=== PATIENT | female | born 1965 | race Caucasian/White ===

== ENCOUNTER → 2022-05-02 | Outpatient (CLI) | payer SELFPAY ==
--- NOTE | 2022-05-02 14:21 | CT_ITS ---
STUDY: CT FACIAL BONES WITHOUT CONTRAST REASON FOR EXAM: Female, 56 years old. CHRONIC SINUITIS RADIATION DOSAGE (If Supplied By Facility): CTDIvol = ( ) mGy, DLP = ( ) mGycm TECHNIQUE: The patient was scanned in a multi detector CT scanner. Sagittal and coronal images were reconstructed. Individualized dose optimization techniques were used for this CT. COMPARISON: None. FINDINGS: Normal soft tissue structures. Normal orbital nieves and orbital contents. Normal nasal bones and anterior nasal spine. Normal facial bones. There is no demonstrated fracture. Chronic pansinusitis with erosion or resection of the medial wall the maxillary sinuses and the middle turbinates and obstruction of the nasal cavity.. CT/Sinus/Facial Bone IMPRESSION: Normal unenhanced CT of the facial bones. Chronic pansinusitis with obstruction of the nasal cavity. Electronically Signed: Joe Sanon MD at 17:05 EDT ,
== END | disposition home or self-care (01) ==
PROVIDERS: PCP Nurse Practitioner Family; Referring Provider Otolaryngology; Visit Provider Otolaryngology
DX: J32.4 Chronic pansinusitis (principal)
CPT/HCPCS: 70486

== ENCOUNTER 2022-06-30 10:52 | Day surgery (SDC) | payer SELFPAY, OTHER ==
--- NOTE | 2022-06-26 11:07 | EKG12_ITS ---
Test Reason : PREOP Blood Pressure : / mmHG Vent. Rate : 080 BPM Atrial Rate : 080 BPM P-R Int : 146 ms QRS Dur : 080 ms QT Int : 358 ms P-R-T Axes : 058 002 030 degrees QTc Int : 412 ms Normal sinus rhythm Normal ECG Confirmed by DOTTIE LEBLANC, NILS ([id number]), avid editor CYNTHIA BYRD ([id number]) on 06/27/2022 10:36:54 AM Referred By: Gregory Rondon Confirmed By:INOCENCIA SINCLAIR MD
[2022-06-26 13:40] LABS: Thyroid Stim Hormone (TSH) 1.28 uIU/mL (0.358-3.74)
[2022-06-30] VITALS (13 sets, daily range): BP systolic 124–168; BP diastolic 67–93; PULSE 61–96; RESP 16–18; TEMP 36.5–36.8; O2SAT 90–99; BMI 29.5
[2022-06-30] MEDS: Lactated Ringers 1,000 ML 15 ML IV ×2 (11:42→15:40)
[2022-06-30] MEDS: Oxymetazoline 0.05% 1 SPRAY SPRAY.BTL NASAL (11:42)
[2022-06-30] MEDS: Oxymetazoline 0.05% 1 SPRAY SPRAY.BTL 15 SPRAY (12:09)
--- NOTE | 2022-06-30 12:37 | PCM.DC.SUM ---
Providers Primary Care Physician: Joe Haider, DOT-C Reason For Visit: ENDOSCOPIC INTRANASAL ETHMOID, MAX, ANTROS Medications at Discharge Home Medications Colon [place]es 2 tab PO/SL TID 06/24/22 L-Theanine 1 cap PO/SL DAILY 06/24/22 Thyroid Complete 2 tab PO/SL DAILY 06/24/22 Yeast Desent 2 tab PO/SL DAILY 06/24/22 cholecalciferol (vitamin D3) 125 mcg (5,000 unit) tablet (Vitamin D3) 125 mcg PO DAILY 06/24/22 elderberry fruit 200 mg capsule 1,150 mg PO DAILY 06/24/22 fish, borage, flaxseed oils-omega 3,6,9 comb no.1 1,200 mg capsule ([place] 3-6-9) 2 cap PO DAILY 06/24/22 ranitidine HCl 75 mg tablet 75 mg PO DAILY 06/24/22 Weight / BMI Weight Weight: 78 kg Body Mass Index (BMI) 29.5 D/C Instructions Discharge Diet: No restrictions Discharge Activity: Return to Normal Activity Additional Activity Instructions: Start irrigation 4x/day on 07/01/22 Start the antibiotic tonight Please Follow Up With: Gregory Rondon MD When: next week Meaningful Use Info Meaningful Use Diagnoses (Choose all that apply): None applicable Discharge Plan Admission Attending Provider: Gregory Rondon Primary Care Provider: Joe Haider NP Consulting Providers: Deshaun Rand Discharge Orders/Prescriptions Prescriptions: No Action Elderberry 200 mg Capsule 1,150 mg PO DAILY cholecalciferol (vitamin D3) [Vitamin D3] 125 mcg (5,000 unit) Tablet 125 mcg PO DAILY [place] 3-6-9 1,200 mg Capsule 2 cap PO DAILY Colon Ames 2 tab PO/SL TID Thyroid Complete 2 tab PO/SL DAILY Yeast Desent 2 tab PO/SL DAILY L-Theanine 1 cap PO/SL DAILY ranitidine HCl [Zantac 75] 75 mg Tablet 75 mg PO DAILY Referrals / Follow Up: Joe Haider NP, PET ADOPTION COUNSELOR-C [Primary Care Provider] - Disposition Disposition (needs filled in before D/C Order can be placed): Home, Self Care
[2022-06-30] MEDS: Lidocaine 2% /Epi 1:100 (20ml) 20 ML VIAL (12:47)
--- NOTE | 2022-06-30 13:05 | NASAL_PTH ---
PATIENT: NELSY LONGO LOC: [facility] [place] U#:[id number] AGE/SX: 56/F ROOM: RE06/30/[address]: Dr. Gregory Rondon MD : 1965 BED: DIS: 06/30/2022 SPEC #: [id number] RECD: 06/30/22 14:17 STATUS: MARGOT REElida #: [id number] BRYATN: 06/30/22 13:[address]: Gregory Rondon DEPT: SURGICAL PATHOLOGY RECD BY: Sophia Llamas ENTERED: 07/01/22 09:28 SP TYPE: NASAL SPEC OTHR DR: MD Joe Gorman, [employer] OPERATOR-C Tissues: A - Ethmoid sinus, NOS B - Ethmoid sinus, NOS Procedures: Surgery Specimen Level IV HEADER OPERATION: Endoscopic intranasal ethmoid, max, antros, tissue removal PRE-OP DIAGNOSIS: Nasal cavity polyp, chronic sinusitis, nasal congestion, pansinusitis TISSUE SUBMITTED: A ? Right sinus contents, B ? Left sinus contents MICROSCOPIC DIAGNOSIS A. Right sinus contents: Fragments of respiratory mucosa with chronic inflammation. B. Left sinus contents: Fragments of respiratory mucosa with chronic inflammation and bone. NILA:crow 07/02/2022 MICROSCOPIC DESCRIPTION Slides are reviewed. GROSS DESCRIPTION A - Received in fixative is one container labeled with the patient's name and designated right sinus contents. The specimen consists of multiple fragments of thompson hemorrhagic soft tissue that in aggregate measure 7.5 x 3 x 0.3 cm. The specimen is totally submitted in three cassettes. B - Received in fixative is one container labeled with the patient's name and designated left sinus contents. The specimen consists of multiple fragments of frothy, hemorrhagic, thompson-pink soft tissue that in aggregate measure 4 x 4 x 1 cm. Inventory Planner tissue is submitted in three cassettes. / NILA:crow 07/01/2022 TC:3 CPT: 90686 x2
--- NOTE | 2022-06-30 13:36 | OP.PCM_ITS ---
Report of Operation Pre-Operative Diagnosis: chronic sinusitis nasal polyps Post-Operative Diagnosis: same Surgery/Procedure Performed:: Bilateral total ethmoidectomy bilateral maxillary antrostomy use of navigation Surgeon: Gregory Rondon Type of Anesthesia: General Anesthesiologist: Ashkan Sullivan Estimated Blood Loss (mL): minimal Description of Procedure: The patient was taken to the operating room on 06/30/2022. The patient was placed in the supine position on the operating table. The patient was given sufficient general endotracheal anesthesia. The head of bed was elevated 30 degrees. The navigation system was placed and verified per protocol and found to be accurate. 0 and 30 degrees rigid nasal endoscopes were used throughout the entire case. The middle turbinate uncinate process and polyps were injected with 2% lidocaine with epinephrine bilaterally. The right middle turbinate was medialized with a [place] elevator. Polyp was removed from the middle meatus using a sinus shaver. The maxillary antrostomy was recreated by removing polyp from the antrum. Tissue was removed from the maxillary sinus using a microdebrider with a 30 degree rigid nasal endoscope for visualization. Anterior and posterior ethmoidectomy were then carried out using curette, sinus shaver and 45 degree Bl[place]ley Marlin forceps. Ethmoid cells were verified for relation to the skull base and orbit prior to being entered with the navigation system. I then placed Afrin pledgets into the sinonasal cavity. Next attention was turned to the left side. The middle turbinate was medialized with a [place] elevator. A large polyp was removed from the middle meatus using a sinus shaver. In doing so, the maxillary antrostomy was created. Tissue/polyp was removed from the maxillary sinus using with a 30 degree rigid nasal endoscope for visualization. Anterior posterior ethmoidectomy were then carried out using a sinus shaver curette and Blakesley Marlin forceps. Ethmoid cells were verified for relation to the skull base and orbit prior to being entered with the navigation system. Hemostasis was then achieved using Afrin pledgets and suction cautery. The pledgets were then removed bilaterally and Radha powder was applied bilaterally for absolute hemostasis. The procedure was then terminated. The patient was then awoken and brought to the recovery room in stable condition blood loss less than 30 cc replacement none. Sponge, needle, instrument count were correct at the end of the procedure.
[2022-06-30] MEDS: Acetaminophen 325 MG Tablet 650 MG PO (17:00)
== END 2022-06-30 18:15 | disposition home or self-care (01) ==
LOC: SDC 10:53 → AC 10:54
PROVIDERS: Anesthesiology; PCP Nurse Practitioner Family; Referring Provider Otolaryngology; Visit Provider Otolaryngology
PROC: (CPT 31255; principal; 2022-06-30 12:35)
DX: J32.0 Chronic maxillary sinusitis (principal); J33.0 Polyp of nasal cavity
CPT/HCPCS: 31255; 31267; 00160; 36415; 84443; 88305; 93005; J7120; J2405